=== PATIENT | female | born 1955 | race African-American/Black ===

== ENCOUNTER 2016-06-10 17:09 | Emergency (ER) | payer OTHER ==
[2016-06-10 17:15] VITALS: BP 134/78
[2016-06-10 17:56] LABS: URINE MICRO REVIEW NEEDED? NO; URINE SOURCE CLEAN CATCH
[2016-06-10 18:01] LABS: BILIRUBIN URINE NEGATIVE (NEGATIVE); BLOOD URINE SMALL (NEGATIVE); COLOR YELLOW; GLUCOSE URINE NEGATIVE (NEGATIVE); LEUKOCYTES URINE MODERATE (NEGATIVE); NITRITE URINE NEGATIVE (NEGATIVE); PROTEIN URINE TRACE mg/dL (NEGATIVE); SP GRAVITY URINE 1.022; TURBIDITY URINE HAZY (CLEAR); UROBILINOGEN URINE 2 mg/dL (NORMAL)
[2016-06-10 18:02] LABS: UR EPITHELIAL CELLS <10 /HPF (<10); URINE BACTERIA NEGATIVE /HPF; URINE CULTURE NEEDED? YES; URINE RBC <10 /HPF (<10); URINE WBC TNTC /HPF (<10)
--- NOTE | 2016-06-10 18:12 | PROVIDER DOCUMENTATION ---
HPI-Female /OB/Breast - General Chief Complaint: Return/Recheck Stated Complaint: RECHECK/UTI Time Seen by Provider: 06/10/16 17:24 Source: reports: patient Allergies/Adverse Reactions: Patient Allergies Allergy/AdvReac Type Severity Reaction Status Date / Time No Known Allergies Allergy Verified 06/10/16 17:34 Home Medications: Home Medication List Medication Instructions Recorded Confirmed Last Taken Type Levothyroxine [Synthroid] 50 microgm PO DAILY 04/14/12 06/10/16 06/10/16 09:00 History Amlodipine [Norvasc] 5 mg PO DAILY 10/26/12 06/10/16 06/10/16 09:00 History Clonidine [Catapres] 0.1 mg PO BID #0 10/27/12 06/10/16 06/09/16 Rx LISINOpril [Prinivil] 20 mg PO DAILY 11/16/12 06/10/16 06/10/16 09:00 History Sotalol [Betapace] 40 mg PO BID 11/16/12 06/10/16 06/10/16 09:00 History Cephalexin [Keflex] 500 mg PO BID #14 capsule 06/10/16 Unknown Rx Fluconazole [Diflucan] 150 mg PO DAILY #2 tablet 06/10/16 Unknown Rx Phenazopyridine HCl [Pyridium] 100 mg PO TID #6 tablet 06/10/16 Unknown Rx Sulfamethoxazole/Trimethoprim 1 each PO BID #10 tablet 06/10/16 Unknown Rx [Bactrim Ds Tablet] - History of Present Illness-Female /OB Nature of Presenting Problem: Pt is a 61 y/o F c chief complaint of continued dysuria x 2 weeks. pt was tx for a UTI in the ER and states she continues to have dysuria and has now developed itching sensation that is similar to previous yeast infx. Pt denies nausea, vomiting, flank pain. On arrival, pt is in no distress. Review of Systems - Adult - REVIEW OF SYSTEMS - ADULT Constitutional: reports: no symptoms reported. denies: chills, fatique Eyes: reports: no symptoms reported. denies: blurred vision, double vision Ears, Nose, Mouth & Throat: reports: no symptoms reported. denies: ear discharge, nose pain Cardiovascular: reports: no symptoms reported. denies: chest pain, irregular heart rate Respiratory: reports: no symptoms reported. denies: cough, shortness of breath Gastrointestinal: reports: no symptoms reported. denies: abdominal pain, nausea Genitourinary: reports: dysuria. denies: frequent UTI's Musculoskeletal: reports: no symptoms reported. denies: joint pain, joint swelling Integumentary: reports: no symptoms reported. denies: hives, itching Neurological: reports: no symptoms reported. denies: numbness, paresthesia Psychiatric: reports: no symptoms reported. denies: anxiety, emotional problems Endocrine: reports: no symptoms reported Hematologic/Lymphatic: reports: no symptoms reported Allergic/Immunologic: reports: no symptoms reported All Other Systems: Reviewed and Negative Past History - Adult - PAST MEDICAL HISTORY-ADULT Review of Records: reports: Old Records Reviewed, Nursing Assessment Review, Medications Reviewed, Social history reviewed & non-contributory. Major Childhood Illnesses: reports: denies history Cardiovascular: reports: arrhythmia, HTN Respiratory: reports: denies history Gastrointestinal: reports: denies history Obstetrical/Gynecological: reports: denies history Genitourinary: reports: denies history Musculoskeletal: reports: denies history Neurological: reports: denies history Endocrine/Immune: reports: thyroid disorder Other Conditions: reports: denies history - PRIOR SURGERIES/PROCEDURES Surgical/Procedure History: reports: hysterectomy, breast (biospy) - IMMUNIZATION STATUS Childhood Immunizations: See Nurse Assessment Flu Vaccine: See Nurse Assessment - FAMILY HISTORY Family History: reviewed, not pertinent - SOCIAL HISTORY Smoking: denies Substance Use: none/never Alcohol Use Frequency: never Living Situation: family Physical Exam-General - PHYSICAL EXAM-ADULT Initial Vital Signs Reviewed: Yes - CONSTITUTIONAL General Appearance: appears well, alert, no apparent distress - EYES Eyes: PERRL/EOMI, pink conjunctivae - HEAD, EARS, NOSE, MOUTH & THROAT HENMT: normocephalic/atraumatic, moist mucous membranes, normal ENT inspection - RESPIRATORY Respiratory: chest non-tender, lungs clear, normal breath sounds - CARDIOVASCULAR Cardiovascular: normal peripheral pulses, regular rate, rhythm, no edema - GASTROINTESTINAL (ABDOMEN) Abdominal Exam: normal bowel sounds, non tender, soft - GENITOURINARY Female Genitalia/Pelvic Exam: deferred, external exam normal, speculum exam normal - MUSCULOSKELETAL Back Exam: normal inspection, no CVA tenderness, no vertebral tenderness Extremity: normal range of motion, non-tender, normal gait - SKIN Integumentary: normal color, normal turgor, warm/dry - NEUROLOGIC Neurologic: grossly normal, no motor/sensory deficits - PSYCHIATRIC Psych/Mental Status: normal mood/affect, normal thought content, normal thought process, oriented x 3 Progress - PLAN OF CARE/RESULTS Progress/Plan/Lab Results: Orders Category Date Time Status UA Reflex [URINALYSIS W/POSS RFLX CULT] [URINALYSIS] Lab 06/10/16 17:48 Completed Stat Laboratory Tests 06/10/16 17:48 Urine Source CLEAN CATCH Urine Color YELLOW Urine Turbidity HAZY Urine pH 6.0 Ur Specific [place] 1.022 Urine Protein TRACE A Ur Glucose (Stick) NEGATIVE Ur Ketones (Stick) NEGATIVE Urine Blood SMALL A Urine Nitrite NEGATIVE Urine Bilirubin NEGATIVE Urobilinogen Dipstick 2 A Urine Leukocytes MODERATE A Urine WBC (Auto) TNTC A Urine RBC (Auto) <10 U Epithel Cells (Auto) <10 Urine Bacteria (Auto) NEGATIVE Vital Signs - 24 hr 06/10/16 17:14 Temperature 97.5 F L Pulse Rate 65 Respiratory 18 Rate Blood Pressure 134/78 O2 Sat by Pulse 100 Oximetry Departure - Departure Time of Disposition Order: 18:05 DIAGNOSIS: UTI (urinary tract infection) Qualifiers: Urinary tract infection type: urethritis Qualified Code(s): N34.2 - Other urethritis Disposition: HOME 01 Certified Medical Emergency: Emergent Condition: Stable Additional Instructions: ED Follow Up Instructions: You have been treated by a care provider in the Emergency Department. These instructions are being provided to you so you can have an understanding of how to care for yourself upon discharge. Upon discharge from the Emergency Department, you are responsible for making arrangements for follow-up care by a physician of your choice. Take all prescribed medications as directed. Return to the Emergency Department immediately for any new or worsening symptoms. You may call the Physician Referral phone number at [phone] to obtain a list of Physicians who are taking new patients. Prescriptions: Sulfamethoxazole/Trimethoprim [Bactrim Ds Tablet] 1 each PO BID #10 tablet Fluconazole [Diflucan] 150 mg PO DAILY #2 tablet Cephalexin [Keflex] 500 mg PO BID #14 capsule Phenazopyridine HCl [Pyridium] 100 mg PO TID #6 tablet Referrals: Obey Joshi [Primary Care Provider] - Call for Appoint. -1 week Attestation - Physician/ MICAELA Attestation Patient care was provided by Advanced Practice Provider:: Yes Advanced Practice Provider:: Raheel Neal Advanced Practice Provider documentation review:: The Mid-level provider documentation, treatment plan and medical decision making was reviewed by the physician who agrees with all treatment and medical decision making by the MLP.
== END 2016-06-10 18:39 | disposition home or self-care (01) ==
LOC: ED 17:09
DX: N34.2 Other urethritis (principal); R30.0 Dysuria; I10 Essential (primary) hypertension; E07.9 Disorder of thyroid, unspecified; Z79.899 Other long term (current) drug therapy
CPT/HCPCS: 81001; 87088

== ENCOUNTER 2017-01-23 16:20 | Inpatient (IN) ==
[2017-01-23] MEDS ORDERED: CARDIZEM IV ONE ×2 (16:58→17:28)
[2017-01-23 17:40] LABS: MANUAL DIFF NEEDED? NO
[2017-01-23] MEDS ORDERED: CARDIZEM 100 MG/NS 100 MG/100 ML IVPB IV SCH (17:44)
[2017-01-23 17:48] LABS: BASO% 0.2 % (0.0-0.8); EOS# 0.11 X1000 (0.0-0.7); EOS% 1.8 % (0.0-10.0); HEMATOCRIT 40.9 % (37.0-47.0); HEMOGLOBIN 13.6 g/dL (12.0-16.0); LYMPH# 1.44 X1000 (1.2-3.4); MCH 29.2 PG (27-31); MCHC 33.3 g/dL (33-37); MCV 87.8 FL (81-99); MPV 10.4 FL (7.4-10.4); PLT 200 X1000 (130-400); RBC 4.66 XMIL (4.2-5.4)
[2017-01-23 17:55] LABS: INR 1.03; PROTIME 10.8 Seconds (9.2-11.7)
[2017-01-23 18:15] LABS: AGAP 11; ALBUMIN 4.1 g/dL (3.5-5.0); ALKALINE PHOSPHATASE 97 U/L (32-104); BUN 15 mg/dL (8-22); CALCIUM 9.4 mg/dL (8.8-10.2); CHLORIDE 97 mmol/L (98-107); CK PROFILE 144 U/L (24-173); COSMO 279; GOT 25 U/L (10-30); GPT 16 U/L (10-36); MAGNESIUM 2.2 mg/dL (1.5-2.7); POTASSIUM 3.1 mmol/L (3.5-5.1); SODIUM 140 mmol/L (136-145); TCO2 32 mmol/L (25-35); TOTAL BILIRUBIN 0.63 mg/dL (0.20-1.00); TOTAL PROTEIN 9.3 g/dL (6.3-8.3)
--- NOTE | 2017-01-23 18:27 | Diag Imaging Result Doc PS360 ---
CHEST-1 VIEW - 01/23/2017 INDICATION: afib w/ RVR TECHNIQUE: COMPARISON: 05/17/2014 FINDINGS: There is cardiomegaly and pulmonary vascular congestion. The appearance is very similar to prior. No infiltrates or edema. IMPRESSION: Cardiomegaly and pulmonary vascular congestion. Electronically signed by Obey Lloyd 01/23/2017 6:25 PM
[2017-01-23] MEDS ORDERED: KLOR-CON PO ONE (19:52)
[2017-01-23] MEDS: CARDIZEM 100 MG/NS 100 MG/100 ML IVPB IV SCH ×2 (20:22→21:36)
[2017-01-23] MEDS ORDERED: LANOXIN IV ONE (20:59)
[2017-01-23] MEDS ORDERED: CATAPRES PO SCH (21:00)
[2017-01-23] MEDS ORDERED: BETAPACE PO SCH (21:00)
[2017-01-23] MEDS ORDERED: ZOFRAN IV PRN (22:08)
[2017-01-23] MEDS: ELIQUIS PO SCH (22:40)
[2017-01-24] MEDS ORDERED: NS 250 ML IV ONE (00:37)
[2017-01-24] MEDS ORDERED: ATROPINE IV ONE ×2 (02:11→02:30)
--- NOTE | 2017-01-24 05:15 | EKG Report ---
Test Performed on : 01/24/2017 00:07:19 AM Test Reason : Chest Pain Blood Pressure : / mmHG Vent. Rate : 031 BPM Atrial Rate : 031 BPM P-R Int : 150 ms QRS Dur : 066 ms QT Int : 498 ms P-R-T Axes : 049 061 067 degrees QTc Int : 357 ms Marked sinus bradycardia. Abnormal ECG When compared with ECG of 23-JAN-2017 16:37, (Unconfirmed) Sinus rhythm. has replaced Atrial fibrillation. Vent. rate has decreased BY [address] no longer depressed in Inferior leads ST no longer depressed in Anterior leads Nonspecific T wave abnormality no longer evident in Inferior leads Nonspecific T wave abnormality no longer evident in Anterior leads Confirmed by Kelsey BEY, Gustavo Nam ([id number]) on 01/25/2017 6:18:59 PM
--- NOTE | 2017-01-24 05:18 | EKG Report ---
Test Performed on : 01/23/2017 4:37:45 PM Test Reason : Chest Pain Blood Pressure : / mmHG Vent. Rate : 148 BPM Atrial Rate : 326 BPM P-R Int : 000 ms QRS Dur : 066 ms QT Int : 294 ms P-R-T Axes : 000 033 -60 degrees QTc Int : 461 ms Atrial fibrillation. with rapid ventricular response. Posterior infarct , age undetermined Marked ST abnormality, possible inferior subendocardial injury Abnormal ECG When compared with ECG of 25-AUG-2015 15:17, Significant changes have occurred Unconfirmed Result
[2017-01-24 06:00] LABS: AGAP 8; BUN 16 mg/dL (8-22); CALCIUM 9.3 mg/dL (8.8-10.2); CHLORIDE 104 mmol/L (98-107); COSMO 286; MAGNESIUM 2.2 mg/dL (1.5-2.7); POTASSIUM 4.3 mmol/L (3.5-5.1); SODIUM 143 mmol/L (136-145); TCO2 31 mmol/L (25-35)
[2017-01-24] MEDS: SYNTHROID PO SCH (06:07)
[2017-01-24] MEDS: NS 1,000 ML IV SCH ×2 (08:53→16:49)
[2017-01-24] MEDS: ELIQUIS PO SCH ×2 (08:53→20:07)
[2017-01-24] MEDS ORDERED: NORVASC PO SCH (09:00)
[2017-01-24] MEDS ORDERED: PRINIVIL PO SCH (09:00)
--- NOTE | 2017-01-24 14:45 | ECHO REPORT ---
ORDER DATE: 01/24/2017 INDICATIONS: Atrial fibrillation and hypertension. FINDINGS: 1. Right atrium appears normal in size. 2. Mild tricuspid regurgitation. RV systolic pressure of 38. 3. Normal RV size and systolic function. 4. Mild pulmonic insufficiency. 5. Normal left atrial size at 3.8. 6. No mitral prolapse. Mild mitral regurgitation. 7. Normal LV size, end-diastolic dimension of 4.5. Normal wall thicknesses with a posterior and interventricular septal wall thickness is 0.9 cm each. Normal LV systolic function. Estimated ejection fraction 60%-65% with normal wall motion. 8. Aortic valve opens well. It is trileaflet. No evidence of stenosis or insufficiency. 9. Aorta appears normal on visualized segments. 10. No pericardial effusion seen. 11. Patient appears to be in sinus rhythm. Heart rates are predominantly in the 40s. cc: MD Idris Ortez CRNP
[2017-01-25] MEDS: NS 1,000 ML IV SCH ×2 (00:27→12:06)
[2017-01-25] MEDS: SYNTHROID PO SCH (06:04)
[2017-01-25 07:00] LABS: MANUAL DIFF NEEDED? NO
[2017-01-25 07:01] LABS: BASO% 0.2 % (0.0-0.8); EOS# 0.08 X1000 (0.0-0.7); EOS% 1.8 % (0.0-10.0); HEMATOCRIT 36.3 % (37.0-47.0); HEMOGLOBIN 11.9 g/dL (12.0-16.0); LYMPH# 1.69 X1000 (1.2-3.4); LYMPH% 38.9 % (20.5-51.1); MCH 29.2 PG (27-31); MCHC 32.8 g/dL (33-37); MONO% 6.9 % (1.7-9.3); MPV 10.6 FL (7.4-10.4); NEUT% 52.2 % (42.2-75.2); PLT 161 X1000 (130-400); RBC 4.08 XMIL (4.2-5.4)
[2017-01-25 07:27] LABS: AGAP 9; BUN 15 mg/dL (8-22); CALCIUM 8.5 mg/dL (8.8-10.2); CHLORIDE 104 mmol/L (98-107); COSMO 281; POTASSIUM 4.1 mmol/L (3.5-5.1); SODIUM 141 mmol/L (136-145); TCO2 28 mmol/L (25-35)
[2017-01-25] MEDS: ELIQUIS PO SCH (08:35)
[2017-01-25 12:09] VITALS: BP 176/79
== END 2017-01-25 13:05 | disposition home or self-care (01) ==
LOC: ED 16:20 → SUATTDRO 21:32 → 3S 21:32
PROVIDERS: ATTEND Internal Medicine